=== PATIENT | female | born 1970 | race Caucasian/White ===

== ENCOUNTER 2021-01-21 10:03 | Day surgery (SDC) | payer MEDICAID, SELFPAY ==
[~2021-01-21] VITALS: Ht 165.1 cm; Wt 92.1 kg
[2021-01-21 10:37] LABS: HCG,QUAL RESULT NEGATIVE (NEGATIVE)
[2021-01-21] MEDS ORDERED: KETOROLAC TROMETHAMINE 30 MG VIAL IVP PRN (11:45)
[2021-01-21] MEDS ORDERED: HYDROmorphone 1 MG/ML INJ. CARTRIDGE IVP PRN (11:45)
[2021-01-21] MEDS ORDERED: METOCLOPRAMIDE HCL 10 MG/2 ML VIAL IVP PRN (11:45)
[2021-01-21] MEDS ORDERED: KETOROLAC TROMETHAMINE 30 MG VIAL ONE (13:12)
[2021-01-21 13:30] VITALS: BP_SYST 128
== END 2021-01-21 13:50 | disposition home or self-care (01) ==
LOC: SDS 10:03 → SMU 10:05 → SDS 13:50
PROVIDERS: ATTEND Obstetrics & Gynecology
DX: N92.0 Excessive and frequent menstruation with regular cycle (principal); E66.01 Morbid (severe) obesity due to excess calories; Z20.822 Contact with and (suspected) exposure to COVID-19
CPT/HCPCS: 58563; 84703; J1885; U0003